=== PATIENT | female | born 1950 | race Caucasian/White ===

== ENCOUNTER 2020-01-31 13:27 | Outpatient (CLI) | payer MEDICARE, SELFPAY | END 2020-01-31 13:28 | disposition home or self-care (01) | LOC: CHSLAB 13:33 | DX: Z02.89 Encounter for other administrative examinations (principal) | CPT/HCPCS: 36415 ==

== ENCOUNTER 2020-10-13 14:16 | Outpatient (CLI) | payer OTHER, SELFPAY ==
[2020-10-13 16:06] LABS: Ferritin 8 ng/mL (8-252); Iron 15 ug/dL (50-170); Percent Iron Saturation 3 % (12-57); Vitamin B12 563 pg/mL (193-986)
== END 2020-10-13 14:17 | disposition home or self-care (01) ==
LOC: CHSLAB 14:19
PROVIDERS: PCP Family Medicine; Visit Provider Nurse Practitioner Family
DX: D64.9 Anemia, unspecified (principal)
CPT/HCPCS: 36415; 82607; 82728; 83540; 83550

== ENCOUNTER 2020-12-10 18:44 | Observation (INO) | payer MEDICARE, SELFPAY ==
[2020-12-10 19:04] VITALS: BP 144/60; PULSE 97; RESP 20; TEMP 36.7; O2SAT 97
--- NOTE | 2020-12-10 19:21 | ED.GENADULT ---
HPI - General Adult General Chief complaint: Recheck/Abnormal Lab/Rx Stated complaint: sent by doctor for low hemoglobin Source: patient Mode of arrival: ambulatory Limitations: no limitations History of Present Illness HPI narrative: Anne Marie is a 70F with a PMH of PAD, obesity, DMII, asthma, MDD, hypothyroidism, HTN, osteoporosis and anemia that presented to the ED with abnormal labs. Although she has been feeling weak she was just at a regular checkup when she had labs drawn. She had a critically low Hgb of 6.2 and was instructed to come here. She has no concerns other than her weakness. She denies N/V, diarrhea, and melena but does admit bright red blood per rectum but thinks this is from her hemorrhoids. Related Data Home Medications Medication Instructions Recorded Confirmed ezetimibe [Zetia] 10 mg PO DAILY 12/10/20 12/10/20 ferrous sulfate 325 mg PO DAILY 12/10/20 12/10/20 sertraline 100 mg PO BID 12/10/20 12/10/20 Allergies Allergy/AdvReac Type Severity Reaction Status Date / Time codeine Allergy Severe numbess in Verified 12/10/20 21:49 face , vomitting Jammopv-Uzr-Hoq Reductase Allergy Intermediate Muscle pain Verified 12/10/20 21:49 Inhibitor tetanus immune globulin Allergy Intermediate sick when Verified 12/10/20 21:49 age 4 Review of Systems Constitutional: Constitutional: Denies chills, Reports fatigue, Denies fever(s) and Reports weakness Eyes: Eyes: Reports no additional eye complaints ENT: Reports system reviewed and no additional complaints, except as documented Cardiovascular: Cardiovascular: Reports no additional cardiovascular complaints Respiratory: Respiratory: Reports no additional respiratory complaints Gastrointestinal: Gastrointestinal: Reports no additional gastrointestinal complaints Genitourinary: Genitourinary: Reports no additional female genitourinary complaints Musculoskeletal: Musculoskeletal: Reports no additional musculoskeletal complaints Integumentary/Breasts: Skin/Breast: Reports system reviewed and no additional complaints, except as docu Neurologic: Reports system reviewed and no additional complaints, except as documented Psychiatric: Psychiatric: Reports no additional psychiatric complaints Endocrine: Endocrine: Reports no additional endocrine complaints Hematologic/Lymphatic: Hematologic/Lymphatic: Reports no additional hematologic/lymphatic complaints Allergic/Immunologic: Allergic/Immunologic: Reports no additional allergic/immunologic complaints FORMERLY [facility], [facility] Past Medical History Medical History Age-related osteoporosis without current pathological fracture Essential (primary) hypertension Hyperlipidemia, unspecified Hypothyroidism, unspecified Major depressive disorder Mild persistent asthma without complication Obesity (BMI 30.0-34.9) PAD (peripheral artery disease) Type 2 diabetes mellitus without complications Surgical History Surgical History No history of previous surgery Family History Family History Sibling Family history of lung cancer, Onset Age: 73 Father Family history of heart disease in male family member before age 55 Family history of rheumatic fever Social History Social History Smoking packs per day: 0.5 Smoking cigarettes per day: 10.0 Years smoked: 12 Smoking pack-years: 6.00 Smoking status: Former smoker Tobacco type: cigarettes Smoking end date: 05/01/12 Alcohol intake: never Substance use: never Gender identity (if verbalized by the patient): Female Sexual Orientation (if Verbalized by the Patient): Straight or Heterosexual Spiritual care concerns: No Exam Const: General: no acute distress and alert Orientation/consciousness: patient oriented x3 Other: Laying on
[2020-12-10 19:29] LABS: Basophils Absolute Auto 0.02 K/mm3 (0.00-0.10); Basophils Percent Auto 0.4 % (0.0-1.0); Eosinophils Absolute Auto 0.15 K/mm3 (0.02-0.50); Eosinophils Percent Auto 2.9 % (1.0-6.0); Hematocrit 21.6 % (35.0-42.0); Immature Granulocyte Absolute 0.01 K/mm3 (0.00-0.00); Immature Granulocyte Percent A 0.2 % (0.0-0.0); Lymphocytes Absolute Auto 0.89 K/mm3 (1.10-4.50); Mean Corpuscular HGB Conc 28.2 g/dL (32.0-36.0); Mean Corpuscular Hemoglobin 21.7 pg (27.0-31.0); Mean Corpuscular Volume 76.9 fL (78.0-102.0); Mean Platelet Volume 9.1 fl (9.2-11.8); Monocytes Absolute Auto 0.43 K/mm3 (0.10-0.90); Monocytes Percent Auto 8.2 % (2.0-11.0); Neutrophils Absolute Auto 3.7 K/mm3 (1.7-7.2); Neutrophils Percent Auto 71.3 % (50.0-70.0); Platelet Count Result 186 K/mm3 (150-420); Red Blood Count 2.81 M/mm3 (4.20-5.40); Red Cell Distribution Width 17.8 % (11.6-14.4); White Blood Count 5.2 K/mm3 (4.8-10.8)
[2020-12-10 19:31] LABS: Hemoglobin 6.1 g/dL (11.7-13.8)
[2020-12-10 19:38] LABS: Alanine Aminotransferase 30 U/L (14-59); Albumin Level 3.3 g/dL (3.4-5.0); Alkaline Phosphatase 94 U/L (46-116); Anion Gap 9 mmol/L (8-16); Aspartate Amino Transferase 39 U/L (15-37); Bilirubin,Total 0.6 mg/dL (0.00-1.00); Blood Urea Nitrogen 3 mg/dL (7-18); Calcium 8.1 mg/dL (8.5-10.1); Carbon Dioxide 26 mmol/L (21-32); Chloride 97 mmol/L (98-108); Estimated CRCL calculation 52 ml/min; Estimated Glomerular Filt Rate > 60; Glucose 169 mg/dL (70-99); Osmolality Calculated 274 mOsm/kg (285-295); Potassium 3.6 mmol/L (3.5-5.1); Sodium 132 mmol/L (136-145); Total Protein 6.4 g/dL (6.4-8.2)
[2020-12-10 19:49] LABS: INR 1.1; Prothrombin Time 11.4 Seconds (9.50-12.10)
[2020-12-10] MEDS: SODIUM CHLORIDE 0.9% IV 250 ML 30 ML IV CONT (20:40)
[2020-12-10 20:46] VITALS: BP 139/74; PULSE 92; RESP 20; TEMP 37.3; O2SAT 97
[2020-12-10 21:02] VITALS: BP 144/64; PULSE 80; RESP 20; TEMP 37.3; O2SAT 97
[2020-12-10 21:47] VITALS: PULSE 91; RESP 18; O2SAT 95
[2020-12-10 22:02] VITALS: BP 130/64; PULSE 81; RESP 20; TEMP 37.3; O2SAT 96
[2020-12-10 22:35] VITALS: BP 148/68; PULSE 86; RESP 20; TEMP 37.2; O2SAT 97
[2020-12-10 22:47] LABS: Hematocrit 25.6 % (35.0-42.0); Hemoglobin 7.5 g/dL (11.7-13.8); Mean Corpuscular HGB Conc 29.3 g/dL (32.0-36.0); Mean Corpuscular Hemoglobin 22.8 pg (27.0-31.0); Mean Corpuscular Volume 77.8 fL (78.0-102.0); Mean Platelet Volume 8.9 fl (9.2-11.8); Platelet Count Result 195 K/mm3 (150-420); Red Blood Count 3.29 M/mm3 (4.20-5.40); Red Cell Distribution Width 17.3 % (11.6-14.4); White Blood Count 5.6 K/mm3 (4.8-10.8)
--- NOTE | 2020-12-10 23:37 | PC.NURSE ---
70 year old female admitted under observation for Anemia. Hgb 6.1 before 1st unit of blood. Patient brought to room in wheelchair from ER. Alert and oriented x3. Able to voice needs. Amb to/from bathroom with steady gait. States she feels stronger since receiving 1 unit of blood. HGB upon arrival to floor was 7.5 and Hct 25.6. MD notified of result. N.O. to not give 2nd unit at this time. Will repeat H and H in a.m. Patient given sandwich, oranges, and Pepsi. Patient oriented to room. Call light and belongings within reach.
[2020-12-10 23:50] VITALS: BMI 33.2
[2020-12-11] VITALS: BP 164/66; PULSE 91; RESP 18; TEMP 36; O2SAT 95
[2020-12-11 04:00] VITALS: BP 140/59; PULSE 85; RESP 18; TEMP 36.1; O2SAT 94
--- NOTE | 2020-12-11 07:10 | PC.NURSE ---
Completed bedside report. Patient resting comfortably in bed. Patient stated she was up independently to bathroom. Placed hat to keep track of I & O.
[2020-12-11 07:59] LABS: Hemoglobin 7.2 g/dL (11.7-13.8); Mean Corpuscular HGB Conc 28.8 g/dL (32.0-36.0); Mean Corpuscular Hemoglobin 22.2 pg (27.0-31.0); Mean Corpuscular Volume 77.2 fL (78.0-102.0); Mean Platelet Volume 9.2 fl (9.2-11.8); Platelet Count Result 211 K/mm3 (150-420); Red Blood Count 3.24 M/mm3 (4.20-5.40); Red Cell Distribution Width 17.3 % (11.6-14.4); White Blood Count 5.5 K/mm3 (4.8-10.8)
[2020-12-11 08:00] VITALS: BP 142/62; PULSE 80; RESP 18; TEMP 36.6; O2SAT 93
[2020-12-11 08:14] LABS: Alanine Aminotransferase 31 U/L (14-59); Albumin Level 3.2 g/dL (3.4-5.0); Alkaline Phosphatase 96 U/L (46-116); Anion Gap 10 mmol/L (8-16); Aspartate Amino Transferase 55 U/L (15-37); Bilirubin,Total 0.6 mg/dL (0.00-1.00); Blood Urea Nitrogen 4 mg/dL (7-18); Calcium 8.4 mg/dL (8.5-10.1); Carbon Dioxide 26 mmol/L (21-32); Chloride 104 mmol/L (98-108); Estimated CRCL calculation 49 ml/min; Estimated Glomerular Filt Rate > 60; Glucose 124 mg/dL (70-99); Osmolality Calculated 287 mOsm/kg (285-295); Potassium 4.3 mmol/L (3.5-5.1); Sodium 140 mmol/L (136-145); Total Protein 6.6 g/dL (6.4-8.2)
--- NOTE | 2020-12-11 08:28 | PM.SD2 ---
Same Day Admit/Disch: HPI History of Present Illness Chief complaint: sent by doctor for low hemoglobin <MACKENZIE Xiao - Last Filed: 12/11/20 08:57> Narrative: Anne Marie Salinas is a 70 year old female that presented to our emergency department after being notified by her primary care physician that she needs a blood transfusion for hemoglobin of 6. Patient has a past medical history of hyperlipidemia, hypothyroidism, major depression disorder, PAD, type 2 diabetes, osteoporosis and asthma. Patient notes that while she was at home she did feel fatigued for approximately 2 weeks she did deny any shortness of breath. This is not her first episode of anemia, she is prescribed iron pills but do not take them because they upset her stomach. Patient notes that she did have a small amount of blood in her stool but she has hemorrhoids she denies any excessive amount of blood loss with her bowel movement. She also notes that she has a future appointment with the GI doctor to be scoped to determine where her blood loss is coming from. Vital signs 140/59, 85, 18, 96.9, 94% on room air, WBCs 5.5, hemoglobin 7.2, hematocrit 25.0, platelets 211, 140, potassium 4.3, creatinine 0.85, BUN 4, glucose 124, AST 55, ALT 31. Patient being admitted for anemia she was discharged with a repeat hemoglobin hematocrit with results going to her primary care physician in 3 days <MACKENZIE Xiao - Last Filed: 12/11/20 08:57> COUNTS INCLUDE 234 BEDS AT THE [facility] Past Medical History Medical History: Medical History Age-related osteoporosis without current pathological fracture Essential (primary) hypertension Hyperlipidemia, unspecified Hypothyroidism, unspecified Major depressive disorder Mild persistent asthma without complication Obesity (BMI 30.0-34.9) PAD (peripheral artery disease) Type 2 diabetes mellitus without complications <MACKENZIE Xiao - Last Filed: 12/11/20 08:57> Surgical History Surgical History: Surgical History No history of previous surgery <MACKENZIE Xiao - Last Filed: 12/11/20 08:57> Family History Family History: Family History Sibling Family history of lung cancer, Onset Age: 73 Father Family history of heart disease in male family member before age 55 Family history of rheumatic fever <TATA Xiao-Katie - Last Filed: 12/11/20 08:57> Social History Social History: Social History Smoking packs per day: 0.5 Smoking cigarettes per day: 10.0 Years smoked: 12 Smoking pack-years: 6.00 Smoking status: Former smoker Tobacco type: cigarettes Smoking end date: 05/01/12 Alcohol intake: never Substance use: never Gender identity (if verbalized by the patient): Female Sexual Orientation (if Verbalized by the Patient): Straight or Heterosexual Spiritual care concerns: No <TATA Xiao-Katie - Last Filed: 12/11/20 08:57> Same Day Admit/Disch: Med Pre-admit Medications Home Medications: Home Medications Medication Instructions Recorded Confirmed Type clopidogrel 75 mg tablet See Rx Instructions .ROUTE 04/02/20 12/10/20 Rx .COMPLEX #90 tablet hydrochlorothiazide 12.5 mg tablet 12.5 mg PO DAILY #90 tablet 04/02/20 12/10/20 Rx alendronate 10 mg tablet 10 mg PO QAM #90 tablet 09/29/20 12/10/20 Rx losartan 100 mg tablet 100 mg PO DAILY #90 tablet 09/29/20 12/10/20 Rx metformin 1,000 mg tablet 1,000 mg PO BID #180 tablet 09/29/20 12/10/20 Rx montelukast 10 mg tablet 10 mg PO DAILY #90 tablet 09/29/20 12/10/20 Rx levothyroxine 150 mcg tablet 150 mcg PO DAILY #90 tablet 10/05/20 12/10/20 Rx sertraline 100 mg tablet 100 mg PO BID #180 tablet 10/09/20 12/10/20 Rx albuterol sulfate 90 mcg/actuation See Rx Instructions .ROUTE 11/30/20 12/10/20 Rx aerosol
[2020-12-11 12:00] VITALS: BP 140/68; PULSE 83; RESP 18; TEMP 36.8; O2SAT 93
--- NOTE | 2020-12-11 13:47 | PC.NURSE ---
Patient was discharged to home. She left by private vehicle, and was medically stable. Patient was anxious to be home, as she did not tell anyone she was in the hospital.
== END 2020-12-11 13:00 | disposition home or self-care (01) ==
LOC: CHSED 18:47 → CHS2ND 21:51
PROVIDERS: Nurse Practitioner; Admitting Provider Family Medicine; Emergency Provider Family Medicine; PCP Nurse Practitioner Family; Visit Provider Family Medicine
DX: D64.9 Anemia, unspecified (principal); E11.51 Type 2 diabetes mellitus with diabetic peripheral angiopathy without gangrene; I73.9 Peripheral vascular disease, unspecified; I10 Essential (primary) hypertension; J45.909 Unspecified asthma, uncomplicated; E03.9 Hypothyroidism, unspecified; E66.9 Obesity, unspecified; E78.5 Hyperlipidemia, unspecified; M81.0 Age-related osteoporosis without current pathological fracture; F32.9 Major depressive disorder, single episode, unspecified
CPT/HCPCS: 36415; 36430; 80053; 85025; 85027; 85610; 86850; 86900; 86901; 86920; 96360; 96361; 99285; G0378; J7050; P9016

== ENCOUNTER 2020-12-28 01:36 | Day surgery (SDC) | payer MEDICARE, SELFPAY ==
[2020-12-22 10:37] VITALS: BMI 33.1
--- NOTE | 2020-12-28 09:31 | WPDANESEPPF ---
Anes - Initial Pre Proc Eval Procedure: Operation Date: 12/28/20 13:00 Proposed Procedures p Esophagogastroduodenoscopy & Colonoscopy - Adi Echeverria MD Date/Time: 12/28/20 09:31 Surgeon: Adi Echeverria MD Pre Op Diagnosis: JOSE MARIA D50.9 Patient Data Age: 70 Gender: F Height: 1.52 m Weight: 77 kg Allergies Allergy/AdvReac Type Severity Reaction Status Date / Time codeine Allergy Severe numbess in Verified 12/28/20 12:24 face , vomitting Mnrvyrh-Gxm-Ezk Reductase Allergy Intermediate Muscle pain Verified 12/28/20 12:24 Inhibitor tetanus immune globulin Allergy Intermediate sick when Verified 12/28/20 12:24 age 4 Home Medications Medication Instructions Recorded Confirmed Type hydrochlorothiazide 12.5 mg tablet 12.5 mg PO DAILY #90 tablet 04/02/20 12/28/20 Rx alendronate 10 mg tablet 10 mg PO QAM #90 tablet 09/29/20 12/28/20 Rx losartan 100 mg tablet 100 mg PO DAILY #90 tablet 09/29/20 12/28/20 Rx metformin 1,000 mg tablet 1,000 mg PO BID #180 tablet 09/29/20 12/28/20 Rx montelukast 10 mg tablet 10 mg PO DAILY #90 tablet 09/29/20 12/28/20 Rx levothyroxine 150 mcg tablet 150 mcg PO DAILY #90 tablet 10/05/20 12/28/20 Rx ezetimibe [Zetia] 10 mg PO DAILY 12/10/20 12/28/20 History sertraline 100 mg PO BID 12/10/20 12/28/20 History clopidogrel 75 mg tablet 75 mg PO DAILY #90 tablet 12/14/20 12/28/20 Rx ferrous sulfate 325 mg (65 mg 325 mg PO DAILY #90 tablet 12/15/20 12/28/20 Rx iron) tablet albuterol sulfate 1 inh INHALATION Q4H PRN 12/22/20 12/28/20 History Patient hx anesthesia problems: none Family hx anesthesia problems: none PMFSH Past Medical History Medical History (Updated 12/28/20 @ 09:31 by Hugh Jarvis DO) Age-related osteoporosis without current pathological fracture Anxiety Asthma Essential (primary) hypertension Hyperlipidemia, unspecified Hypothyroidism, unspecified Major depressive disorder Mild persistent asthma without complication Obesity (BMI 30.0-34.9) PAD (peripheral artery disease) Type 2 diabetes mellitus without complications Surgical History Surgical History (Updated 12/28/20 @ 09:31 by Hugh Jarvis DO) History of coronary artery stent placement No history of previous surgery Family History Family History Sibling Family history of lung cancer, Onset Age: 73 Father Family history of heart disease in male family member before age 55 Family history of rheumatic fever Social History Social History Smoking packs per day: 0.5 Smoking cigarettes per day: 10.0 Years smoked: 20 Smoking pack-years: 10.00 Smoking status: Former smoker Tobacco type: cigarettes Smoking end date: 05/01/12 Alcohol intake: never Substance use: never Living arrangements: alone Gender identity (if verbalized by the patient): Female Sexual Orientation (if Verbalized by the Patient): Straight or Heterosexual Spiritual care concerns: No Anes - Eval Final PreProcedure Day of Procedure 12/28/20 09:31 Patient weight: obese Heart: regular rate and rhythm Lungs: clear to auscultation and normal air movement Airway: Mallampati scale class II Neurological: alert and oriented Last oral intake: >/= 8 hours ASA classification: III Emergent: no Anesthetic plan: proceed Anesthesia type and monitoring: general GIVS and standard monitoring Informed Consent: The patient's anesthetic plan and its attendant risks and benefits were discussed with the patient/family/POA. Questions were solicited and answers provided to the satisfaction of the patient/family/POA.
[2020-12-28 12:24] VITALS: BP 148/58; PULSE 89; RESP 22; TEMP 35.9; O2SAT 97; BMI 32.0
[2020-12-28] MEDS: LACTATED RINGERS 1,000 ML 150 ML IV CONT (12:48)
[2020-12-28 12:56] LABS: Glucose Point of Care 133 mg/dl (65-105)
--- NOTE | 2020-12-28 13:07 | PM.HPGS ---
History of Present Illness History of Present Illness Consent: Risks, benefits, and alternatives have been discussed and questions answered. Patient agrees to proceed with procedure. Chief complaint: JOSE MARIA D50.9 Narrative: Anne Marie Salinas is a 70 year old female with symptomatic JOSE MARIA that required blood transfusion, she has been taking aleve bid for several months, few times noticed dark stools. Last colonoscopy 2012. Plavix on hold for 4 days in preparation for scopes today. Review of Systems Constitutional: Constitutional: Denies headache(s) and Denies weakness Eyes: Eyes: Denies blurry vision ENT: Reports Normal hearing present, Denies headache(s) and Denies neck pain Cardiovascular: Cardiovascular: Denies chest pain and Denies dyspnea Respiratory: Respiratory: Denies dyspnea Gastrointestinal: Gastrointestinal: Reports no additional gastrointestinal complaints Genitourinary: Genitourinary: Denies dysuria Musculoskeletal: Musculoskeletal: Denies neck pain Integumentary/Breasts: Skin/Breast: Denies dry skin Neurologic: Reports Normal hearing present, Denies headache(s) and Denies weakness Psychiatric: Psychiatric: Denies anxiety Endocrine: Endocrine: Denies change in body appearance Hematologic/Lymphatic: Hematologic/Lymphatic: Denies easy bleeding Allergic/Immunologic: Allergic/Immunologic: Denies urticaria PMFSH Past Medical History Medical History (Updated 12/28/20 @ 13:08 by Adi Echeverria MD) Age-related osteoporosis without current pathological fracture Anxiety Asthma Essential (primary) hypertension Hyperlipidemia, unspecified Hypothyroidism, unspecified Iron deficiency anemia Major depressive disorder Mild persistent asthma without complication Obesity (BMI 30.0-34.9) PAD (peripheral artery disease) Type 2 diabetes mellitus without complications Surgical History Surgical History (Updated 12/28/20 @ 09:31 by Hugh Jarvis DO) History of coronary artery stent placement No history of previous surgery Family History Family History Sibling Family history of lung cancer, Onset Age: 73 Father Family history of heart disease in male family member before age 55 Family history of rheumatic fever Social History Social History Smoking packs per day: 0.5 Smoking cigarettes per day: 10.0 Years smoked: 20 Smoking pack-years: 10.00 Smoking status: Former smoker Tobacco type: cigarettes Smoking end date: 05/01/12 Alcohol intake: never Substance use: never Living arrangements: alone Gender identity (if verbalized by the patient): Female Sexual Orientation (if Verbalized by the Patient): Straight or Heterosexual Spiritual care concerns: No Meds Home Medications and Allergies Home Medications Medication Instructions Recorded Confirmed Type hydrochlorothiazide 12.5 mg tablet 12.5 mg PO DAILY #90 tablet 04/02/20 12/28/20 Rx alendronate 10 mg tablet 10 mg PO QAM #90 tablet 09/29/20 12/28/20 Rx losartan 100 mg tablet 100 mg PO DAILY #90 tablet 09/29/20 12/28/20 Rx metformin 1,000 mg tablet 1,000 mg PO BID #180 tablet 09/29/20 12/28/20 Rx montelukast 10 mg tablet 10 mg PO DAILY #90 tablet 09/29/20 12/28/20 Rx levothyroxine 150 mcg tablet 150 mcg PO DAILY #90 tablet 10/05/20 12/28/20 Rx ezetimibe [Zetia] 10 mg PO DAILY 12/10/20 12/28/20 History sertraline 100 mg PO BID 12/10/20 12/28/20 History clopidogrel 75 mg tablet 75 mg PO DAILY #90 tablet 12/14/20 12/28/20 Rx ferrous sulfate 325 mg (65 mg 325 mg PO DAILY #90 tablet 12/15/20 12/28/20 Rx iron) tablet albuterol sulfate 1 inh INHALATION Q4H PRN 12/22/20 12/28/20 History Allergies Allergy/AdvReac Type Severity Reaction Status Date / Time codeine Allergy Severe numbess in Verified 12/28/20 12:24 face , vomitting Tmhxqhy-Nni-Fbm Reductase Allergy Intermediate Muscle pain Verifi
--- NOTE | 2020-12-28 13:29 | SUR.OPER ---
EGD ENDED 1322 COLONOSCOPY STARTED 1328
[2020-12-28 13:53] VITALS: BP 125/66; PULSE 81; RESP 15; O2SAT 100
[2020-12-28 14:03] VITALS: BP 133/66; PULSE 77; RESP 18; O2SAT 97
[2020-12-28 14:13] VITALS: BP 136/52; PULSE 77; RESP 21; O2SAT 96
== END 2020-12-28 14:40 | disposition home or self-care (01) ==
PROVIDERS: PCP Nurse Practitioner Family; Visit Provider Internal Medicine Gastroenterology
PROC: 0DJ08ZZ Inspection of Upper Intestinal Tract, Via Natural or Artificial Opening Endoscopic (ICD-10-PCS; CPT 43235; principal; 2020-12-28 13:00)
DX: D50.0 Iron deficiency anemia secondary to blood loss (chronic) (principal); K57.30 Diverticulosis of large intestine without perforation or abscess without bleeding; K64.8 Other hemorrhoids; K64.4 Residual hemorrhoidal skin tags; D12.0 Benign neoplasm of cecum; D12.5 Benign neoplasm of sigmoid colon; D12.3 Benign neoplasm of transverse colon; F41.9 Anxiety disorder, unspecified; I10 Essential (primary) hypertension; E03.9 Hypothyroidism, unspecified; I73.9 Peripheral vascular disease, unspecified; E11.9 Type 2 diabetes mellitus without complications; J45.30 Mild persistent asthma, uncomplicated; M81.0 Age-related osteoporosis without current pathological fracture; Z87.891 Personal history of nicotine dependence; Z79.84 Long term (current) use of oral hypoglycemic drugs; E66.9 Obesity, unspecified; Z68.32 Body mass index [BMI] 32.0-32.9, adult; K29.70 Gastritis, unspecified, without bleeding; K29.80 Duodenitis without bleeding
CPT/HCPCS: 45385; 43239; 82948; 87081; 88305; J2704; J7120

== ENCOUNTER 2021-04-27 08:06 | Outpatient (CLI) | payer MEDICARE, SELFPAY ==
--- NOTE | ~2021-04-27 | US_ITS ---
EXAMINATION: US arterial ankle brachial ind EXAM DATE: 04/27/2021 09:11 INDICATION: I73.9 - Peripheral vascular disease, unspecified. Muscle cramping. TECHNIQUE: Segmental pressures and plethysmographic and Doppler waveforms of the brachial and lower e xtremity arteries were obtained. Comparison is made to prior examination from . FINDINGS: Right and left brachial artery pressures of 152 mm Hg and 147 mm Hg, respectively, are concordant (no rmal difference <= 30 mmHg). RIGHT LEG: The ankle-brachial index (BARRIE) is 0.46 (normal >= 0.9-1). The great toe-brachial index (TBI) is 0.30 (normal >= 0.65). The lower extremity ratios, segmental pressure gradients as follows; Dorsalis pedis: 0.46 (70 mmHg). Posterior tibial: 0.26 (39 mmHg). (Normal gradients <= 20-30 mmHg between adjacent levels on the same leg or the same levels on the two legs). Arterial waveforms are monophasic. LEFT LEG: The ankle-brachial index (BARRIE) is 0.54 (normal >= 0.9-1). The great toe-brachial index (TBI) is 0.42 (normal >= 0.65). The lower extremity ratios, segmental pressure gradients as follows; Dorsalis pedis: 0.54 (82 mmHg). Posterior tibial: Unable to hear PT for pressure (Normal gradients <= 20-30 mmHg between adjacent levels on the same leg or the same levels on the two legs). Arterial waveforms are monophasic. IMPRESSION: 1. Right ankle-brachial index 0.46, moderately decreased. 2. Left ankle-brachial index 0.54, moderately decreased. 3. Ankle-brachial indices were normal in 2013. Reviewed, dictated and finalized at location [facility]
[2021-04-27 09:29] LABS: Basophils Percent Auto 0.5 % (0.2-1.2); Eosinophils Absolute Auto 0.1 K/mm3 (0-0.3); Eosinophils Percent Auto 1.8 % (0-4.4); Hematocrit 22.1 % (37.0-47.0); Immature Granulocyte Absolute 0.02 K/mm3 (0.00-0.031); Immature Granulocyte Percent A 0.4 % (0-0.5); Lymphocytes Absolute Auto 1.23 K/mm3 (0.9-3.2); Lymphocytes Percent Auto 22.2 % (18.3-44.2); Mean Corpuscular HGB Conc 25.8 g/dl (32-36); Mean Corpuscular Hemoglobin 18.5 pg (26-34); Mean Corpuscular Volume 71.8 fl (80-100); Mean Platelet Volume 9.5 fl (7.4-10.4); Monocytes Absolute Auto 0.5 K/mm3 (0.1-0.6); Monocytes Percent Auto 8.6 % (2.6-8.5); Neutrophils Absolute Auto 3.7 K/mm3 (1.3-6.7); Neutrophils Percent Auto 66.5 % (45.5-73.1); Platelet Count Result 222 k/mm3 (150-375); Red Blood Count 3.08 M/mm3 (4.2-5.4); Red Cell Distribution Width 17.3 % (11.5-14.5); White Blood Count 5.6 K/mm3 (4.5-10.0)
[2021-04-27 09:34] LABS: Creatinine Urine 149.9 mg/dL
[2021-04-27 09:35] LABS: Hemoglobin 5.7 g/dL (12.0-15.0)
[2021-04-27 09:40] LABS: Alanine Aminotransferase 20 U/L (4-35); Albumin Level 3.7 g/dL (3.5-5.1); Alkaline Phosphatase 76 U/L (38-126); Anion Gap 11 mmol/L (8-16); Aspartate Amino Transferase 49 U/L (14-36); Bilirubin,Total 0.8 mg/dL (0.2-1.3); Blood Urea Nitrogen 4 mg/dL (7-17); Calcium 8.7 mg/dL (8.4-10.2); Carbon Dioxide 23 mmol/L (22-30); Chloride 102 mmol/L (98-107); Cholesterol 172 mg/dL (0-200); Estimated Glomerular Filt Rate > 60; Glucose 117 mg/dL (65-110); HDL Direct 37 mg/dL; Sodium 136 mmol/L (137-145); Triglycerides 112 mg/dL (<150)
[2021-04-27 09:43] LABS: Hypochromasia 2+ (NORMAL); Platelet Estimate Adequate (Adequate)
[2021-04-27 09:44] LABS: Tear Drop Cells 1+ (NORMAL)
[2021-04-27 09:51] LABS: LDL Cholesterol Direct 109 mg/dL
[2021-04-27 09:55] LABS: MALB Creatinine Ratio 349.2 mg/g (0-30); Microalbumin Urine Random 523.5 mg/L (0-16.7)
== END 2021-04-27 08:07 | disposition home or self-care (01) ==
PROVIDERS: PCP Nurse Practitioner Family; Visit Provider Nurse Practitioner Family
DX: E78.5 Hyperlipidemia, unspecified (principal); E11.9 Type 2 diabetes mellitus without complications; E03.9 Hypothyroidism, unspecified; I73.9 Peripheral vascular disease, unspecified; I10 Essential (primary) hypertension
CPT/HCPCS: 36415; 80053; 80061; 82043; 83036; 84443; 85025; 93922

== ENCOUNTER 2021-04-27 11:40 | Observation (INO) | payer MEDICARE, SELFPAY ==
[2021-04-27] VITALS (48 sets, daily range): BP systolic 132–164; BP diastolic 41–67; PULSE 73–98; RESP 15–37; TEMP 35.8–37; O2SAT 93–100; BMI 28.6
[2021-04-27 15:46] LABS: Hematocrit 21.2 % (37.0-47.0)
[2021-04-27 16:00] LABS: Hemoglobin 5.3 g/dL (12.0-15.0)
--- NOTE | 2021-04-27 17:05 | ED.GENADULT ---
HPI - General Adult General Chief complaint: Recheck/Abnormal Lab/Rx Stated complaint: hemoglobin 5.9 Time Seen by Provider: 04/27/21 16:25 Source: patient Mode of arrival: ambulatory Limitations: no limitations History of Present Illness HPI narrative: Patient presents for evaluation of anemia. She saw her primary care provider on 04/15/2021. At that time she had mentioned that she had stopped taking iron replacement due to constipation. She has a history of anemia and had a colonoscopy completed in November of this year. Polyps were removed. At her PCP office visit on 04/15/2021 she had noted she was feeling tired. She had routine lab work performed today and her HgB was 5.7. She states her PCP called EMS because they were concerned that she may have a syncopal episode with her blood count that low. EMS brought her in for further evaluation. During my initial assessment, she denies fatigue, dizziness, lightheadedness, nausea, vomiting, abdominal pain, blood in stool, black colored stool, hematuria, chest pain and shortness of breath. She is on daily plavix. She states she no longer uses aspirin. She does not use NSAIDs. She is not anticoagulated. Upon arriving here today she had her blood work repeated and HgB was 5.3. Related Data Home Medications Medication Instructions Recorded Confirmed albuterol sulfate 1 inh INHALATION Q4H PRN 12/22/20 04/15/21 Allergies Allergy/AdvReac Type Severity Reaction Status Date / Time codeine Allergy Severe numbess in Verified 04/15/21 13:58 face , vomitting Flqbamd-WSL-BdN Reductase Allergy Intermediate Muscle pain Verified 04/15/21 13:58 Inhibitor [Xclyqmf-Vvp-Kmo Reductase Inhibitor] tetanus immune globulin Allergy Intermediate sick when Verified 04/15/21 13:58 age 4 Review of Systems Review of Systems: CONSTITUTIONAL: Denies fever, chills, or sweats. EYES: Denies visual changes, redness, or discharge. ENT: Denies rhinorrhea, congestion, sore throat, or otalgia. CARDIOVASCULAR: Denies chest pain, palpitations, or edema. RESPIRATORY: Denies cough or dyspnea. GASTROINTESTINAL: Denies abdominal pain, nausea, vomiting, or diarrhea. GENITOURINARY: Denies dysuria or hematuria. SKIN: Denies rash or itching. MUSCULOSKELETAL: Denies back pain, joint pain, or myalgia. NEUROLOGIC: Denies headache, numbness, dizziness, or weakness. PSYCHIATRIC: Denies anxiety or depression. FORMERLY [facility] Past Medical History Medical History Age-related osteoporosis without current pathological fracture Anxiety Asthma Essential (primary) hypertension Heart murmur Hyperlipidemia, unspecified Hypothyroidism, unspecified Iron deficiency anemia Major depressive disorder Mild persistent asthma without complication Obesity (BMI 30.0-34.9) PAD (peripheral artery disease) Type 2 diabetes mellitus without complications Surgical History Surgical History History of coronary artery stent placement No history of previous surgery Family History Family History Sibling Family history of lung cancer, Onset Age: 73 Father Family history of heart disease in male family member before age 55 Family history of rheumatic fever Social History Social History Smoking packs per day: 0.5 Smoking cigarettes per day: 10.0 Years smoked: 20 Smoking pack-years: 10.00 Smoking status: Former smoker Tobacco type: cigarettes Smoking end date: 05/01/12 Alcohol intake: never Substance use: never Gender identity (if verbalized by the patient): Female Sexual Orientation (if Verbalized by the Patient): Straight or Heterosexual Spiritual care concerns: No Exam Narrative: GENERAL: Well-appearing, well-nourished, and in no acute distress. AJ
[2021-04-27 17:38] LABS: INR 1.1; Prothrombin Time 14.4 Seconds (11.1-14.7)
[2021-04-27 17:39] LABS: Partial Thromboplastin Time 25.5 SECONDS (22.3-36.8)
[2021-04-27 17:40] LABS: Alanine Aminotransferase 19 U/L (4-35); Albumin Level 3.5 g/dL (3.5-5.1); Alkaline Phosphatase 92 U/L (38-126); Anion Gap 9 mmol/L (8-16); Aspartate Amino Transferase 50 U/L (14-36); Bilirubin,Total 0.6 mg/dL (0.2-1.3); Blood Urea Nitrogen 8 mg/dL (7-17); Calcium 8.8 mg/dL (8.4-10.2); Carbon Dioxide 24 mmol/L (22-30); Chloride 103 mmol/L (98-107); Estimated Glomerular Filt Rate > 60; Glucose 119 mg/dL (65-110); Lipase 179 U/L (23-300); Potassium 3.6 mmol/L (3.4-5.0); Sodium 136 mmol/L (137-145)
--- NOTE | 2021-04-27 18:59 | PM.IMHP ---
H&P: HPI History of Present Illness Date/Time: 04/27/21 18:59 Chief Complaint: Anemia on outpatient labs Narrative: 71-year-old female with past medical history of iron deficiency anemia, gastritis, duodenitis, colonoscopy with polypectomy who presented to the ER due to anemia on outpatient labs. The patient has a had iron deficiency anemia that has been known since at least September of 2020. At the time she was placed on oral iron supplementation which she stopped soon after due to constipation. She did not discuss this with her primary care provider. In November she had an EGD which demonstrated duodenitis and gastritis. At that time she had been taking Aleve twice daily for arthritis pain. She stops taking the Aleve and switch to Tylenol at that time. She also had a colonoscopy at that time which she reports demonstrated some evidence of bleeding from a colon polyp. However this is not mentioned in her colonoscopy report. She has not had any recent blood transfusions. She has never had an iron infusion. She denies having any recent bloody stools or black stools. Her Hemoccult stool from rectal exam in the ER was negative. She denies any palpitations, shortness of breath, increased pallor, hematuria, petechiae or bruising. He denies any lightheadedness or changes in her baseline health. She denies taking blood thinners but does have Plavix listed on her home med list. She states that she thinks she eats enough dietary iron. Review of Systems Review of Systems: 12 systems were reviewed with pertinent positives and negatives per HPI. Except as documented in the HPI, all other systems were reviewed and are negative. [facility] Past Medical History Medical History (Updated 04/27/21 @ 20:51 by Anni Muir DO) Age-related osteoporosis without current pathological fracture Anxiety Essential (primary) hypertension Heart murmur Hyperlipidemia, unspecified Hypothyroidism, unspecified Iron deficiency anemia Major depressive disorder Mild persistent asthma without complication Obesity (BMI 30.0-34.9) PAD (peripheral artery disease) Left femoral stent Type 2 diabetes mellitus without complications Surgical History Surgical History (Updated 04/27/21 @ 20:40 by Anni Muir DO) History of colonoscopy with polypectomy (~11/2020) Status post peripheral artery angioplasty with insertion of stent Left femoral Family History Family History (Updated 04/27/21 @ 20:43 by Anni Muir DO) Sibling Family history of lung cancer, Onset Age: 73 Sisters still living Father , Age 46 Rheumatic heart disease Sibling , Age 46 Heart disease Mother , Age 76 Emphysema lung Son Calciphylaxis cutis Social History Social History (Updated 04/27/21 @ 20:45 by Anni Muir DO) Social History: She is and lives alone. She has 2 adult sons. 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 Primary care physician: Dr. Miranda Morfin Code status: Full code Smoking packs per day: 1 Smoking cigarettes per day: 20.0 Years smoked: 45 Smoking pack-years: 45.00 Smoking status: Former smoker Tobacco type: cigarettes Smoking end date: 05/01/12 Alcohol intake: never Substance use: never Gender identity (if verbalized by the patient): Female Sexual Orientation (if Verbalized by the Patient): Straight or Heterosexual Spiritual care concerns: No Meds Home Medications and Allergies Home Medications Medication Instructions Recorded Confirmed Type hydrochlorothiazide 12.5 mg tablet 12.5 mg PO DAILY #90 tablet 04/02/20 04/15/21 Rx alendronate 10 mg tablet 10 mg PO QAM #90 tablet 09/29/20 04/15/21 Rx losartan 100 mg tablet 100 mg PO DAILY #90 tablet 09/29/20 04/15/21 Rx metformin 1,000 mg tablet 1,000 mg PO BID #180 tablet 09/29/20 04/15/21 Rx clopidogrel 75 mg tablet 75 mg PO DAILY #90 tablet 12/14/20 04/15/21 Rx albuterol sulfate 1 inh INHALATION Q4H PRN
[2021-04-27] MEDS: SODIUM CHLORIDE 0.9% IV 250 ML 30 ML IV CONT (19:13)
[2021-04-27] MEDS: TUBING, BLOOD SET 1 EACH XX (19:17)
[2021-04-27] MEDS: IRON SUCROSE COMPLEX 500 MG in SODIUM CHLORIDE 0.9% IV 250 ML 78.57 MG IVPB (21:45)
[2021-04-27 22:04] LABS: Add Urine Microscopic? YES; Appearance Urine Clear (Clear); Bilirubin Urine Negative (Negative); Blood Urine Negative (Negative); Color Urine Yellow (Yellow); Glucose Urine UA Negative (Negative); Ketones Urine Negative (Negative); Leukocyte Esterase Ur Negative LEU/UL (Negative); Nitrate Urine Negative (Negative); Protein Urine 2+ mg/dL (Negative); RBC Urine 0-2 /hpf (0-2); Specific Grav Ur 1.012 (1.001-1.035); Squamous Epithelial Cell Urine Few /hpf (Few); WBC Urine 0-3 /hpf
--- NOTE | 2021-04-27 22:50 | ADMGEN ---
This patient, Anne Marie Salinas, was admitted to Medical Room 345-01. Patient/family oriented to hospital policies and general routines including ID bracelet, bed and alarms, visiting hours, pain management, procedures, bathroom and other care routines, personal items, smoking policy, room service/diet, and visiting hours. Information on how to activate the Rapid Response Team has been discussed. Patient/Family are encouraged to report perceived risks to care and to ask questions if they do not understand what they are told or what they should do.
[2021-04-27 23:12] LABS: Glucose Point of Care 109 mg/dl (65-105)
[2021-04-28] VITALS (14 sets, daily range): BP systolic 119–178; BP diastolic 43–109; PULSE 71–93; RESP 18–22; TEMP 35.9–36.9; O2SAT 94–99
[2021-04-28] MEDS: SODIUM CHLORIDE 0.9% IV 250 ML 30 ML (01:28)
[2021-04-28 06:31] LABS: Basophils Percent Auto 0.9 % (0.2-1.2); Eosinophils Absolute Auto 0.1 K/mm3 (0-0.3); Hematocrit 26.7 % (37.0-47.0); Hemoglobin 7.6 g/dL (12.0-15.0); Immature Granulocyte Absolute 0.01 K/mm3 (0.00-0.031); Immature Granulocyte Percent A 0.3 % (0-0.5); Lymphocytes Absolute Auto 0.91 K/mm3 (0.9-3.2); Lymphocytes Percent Auto 26.5 % (18.3-44.2); Mean Corpuscular HGB Conc 28.5 g/dl (32-36); Mean Corpuscular Hemoglobin 21.4 pg (26-34); Mean Corpuscular Volume 75.2 fl (80-100); Mean Platelet Volume 10.1 fl (7.4-10.4); Monocytes Absolute Auto 0.4 K/mm3 (0.1-0.6); Monocytes Percent Auto 10.5 % (2.6-8.5); Neutrophils Absolute Auto 2.1 K/mm3 (1.3-6.7); Neutrophils Percent Auto 59.8 % (45.5-73.1); Platelet Count Result 149 k/mm3 (150-375); Red Blood Count 3.55 M/mm3 (4.2-5.4); Red Cell Distribution Width 18.9 % (11.5-14.5); White Blood Count 3.4 K/mm3 (4.5-10.0)
[2021-04-28 06:44] LABS: Alanine Aminotransferase 17 U/L (4-35); Albumin Level 3.2 g/dL (3.5-5.1); Alkaline Phosphatase 80 U/L (38-126); Anion Gap 7 mmol/L (8-16); Aspartate Amino Transferase 39 U/L (14-36); Blood Urea Nitrogen 6 mg/dL (7-17); Calcium 8.4 mg/dL (8.4-10.2); Carbon Dioxide 26 mmol/L (22-30); Chloride 105 mmol/L (98-107); Estimated CRCL calculation 56 ml/min; Estimated Glomerular Filt Rate > 60; Glucose 97 mg/dL (65-110); Potassium 3.4 mmol/L (3.4-5.0); Sodium 138 mmol/L (137-145)
[2021-04-28 07:15] LABS: Hypochromasia 1+ (NORMAL); Platelet Estimate Adequate (Adequate); Poikilocytosis 1+ (NORMAL)
[2021-04-28 07:48] LABS: Glucose Point of Care 95 mg/dl (65-105)
[2021-04-28] MEDS: hydroCHLOROthiazide 12.5 MG CAPSULE PO (10:19)
[2021-04-28] MEDS: EZETIMIBE 10 MG TABLET PO (10:19)
[2021-04-28] MEDS: SERTRALINE HCL 50 MG TABLET 100 MG PO ×2 (10:19→20:52)
[2021-04-28] MEDS: LOSARTAN POTASSIUM 100 MG TABLET PO (10:19)
[2021-04-28] MEDS: PANTOPRAZOLE SODIUM IV 40 MG VIAL IV PUSH ×2 (10:20→20:52)
[2021-04-28 12:00] LABS: Glucose Point of Care 97 mg/dl (65-105)
--- NOTE | 2021-04-28 13:12 | PM.IMPN ---
Progress Note: A&P Assessment and Plan (1) Iron deficiency anemia: Qualifiers: Iron deficiency anemia type: unspecified iron deficiency Qualified Code(s): D50.9 - Iron deficiency anemia, unspecified Code(s): D50.9 - Iron deficiency anemia, unspecified Status: Acute (2) Heart murmur: Code(s): R01.1 - Cardiac murmur, unspecified Status: Acute (3) Type 2 diabetes mellitus without complications: Qualifiers: Diabetes mellitus custodial insulin use: without custodial use Qualified Code(s): E11.9 - Type 2 diabetes mellitus without complications Code(s): E11.9 - Type 2 diabetes mellitus without complications Status: Chronic Additional Plan Severe anemia History of chronic blood loss Gastritis/duodenitis in the past Colon polyps Diverticulosis FOBT negative this admission Iron deficiency anemia Intolerant to oral iron Transfuse 2 unit of PRBC last night with improvement in her hemoglobin. With severity of anemia I suggest further evaluation for any GI bleed. History of gastritis/duodenitis and diverticulosis. Status post EGD and colonoscopy in November 2020 with the findings noted above Considered to be related to NSAIDs use. She is on Plavix currently for her lower extremity peripheral vascular disease needing left femoral stent She received Venofer infusion here Plavix currently on hold GI consulted for further direction further evaluation for source of bleeding lytes not entirely clear if she has bleeding Is it safe to continue on Plavix at discharge? Will we be able to say this without evaluating for ongoing bleed due to severity of anemia that she presented with though asymptomatic. Though she is adamant at going home, she is convinced to stay to speak with GI specialist. Subjective Date/time seen: 04/28/21 13:12 Interval history: HPI:71-year-old female with past medical history of iron deficiency anemia, gastritis, duodenitis, colonoscopy with polypectomy who presented to the ER due to anemia on outpatient labs. The patient has a had iron deficiency anemia that has been known since at least September of 2020. At the time she was placed on oral iron supplementation which she stopped soon after due to constipation. She did not discuss this with her primary care provider. In November she had an EGD which demonstrated duodenitis and gastritis. At that time she had been taking Aleve twice daily for arthritis pain. She stops taking the Aleve and switch to Tylenol at that time. She also had a colonoscopy at that time which she reports demonstrated some evidence of bleeding from a colon polyp. However this is not mentioned in her colonoscopy report. She has not had any recent blood transfusions. She has never had an iron infusion. She denies having any recent bloody stools or black stools. Her Hemoccult stool from rectal exam in the ER was negative. She denies any palpitations, shortness of breath, increased pallor, hematuria, petechiae or bruising. He denies any lightheadedness or changes in her baseline health. She denies taking blood thinners but does have Plavix listed on her home med list. She states that she thinks she eats enough dietary iron. 04/28/2021 she received 1 unit of blood transfusion and hemoglobin up to 7.6. She feels fine and wants to go home. Review of Systems Review of Systems: All systems reviewed & are unremarkable except as noted in HPI and below (HPI) Exam Narrative: General: No acute distress, obese HEENT: Marked conjunctival pallor, no scleral icterus, pupils are equal and reactive with evidence of prior cataract extraction, head is normocephalic atraumatic Respiratory: Clear to auscultation bilaterally, no increased work of breathing Cardiovascular: 2/6 systolic murmur, regular rate, regular rhythm, 2+ bilateral radial pedal pulses Gastrointestinal: Soft, nontender, nondistended, positive bowel sounds Skin: Generalized pallor, non jaundi
[2021-04-28 14:56] LABS: Iron 536 ug/dL (37-170)
[2021-04-28 15:06] LABS: Percent Iron Saturation 111 % (20-50)
--- NOTE | 2021-04-28 15:19 | WPDGICN ---
Assessment and Plan Assessment and plan (1) Iron deficiency anemia: Qualifiers: Iron deficiency anemia type: unspecified iron deficiency Qualified Code(s): D50.9 - Iron deficiency anemia, unspecified Code(s): D50.9 - Iron deficiency anemia, unspecified Status: Acute Assessment and Plan: Patient with iron deficiency anemia this is recently been evaluated with finding a colon polyp as well as duodenitis and gastritis. At the present time there is no need to repeat investigation. Patient should be given iron either orally or intravenously. And close follow-up as she may need additional iron until this resolves. Unless she has additional active bleeding endoscopy is unlikely to change her diagnosis. Would recommend documenting stable hemoglobin after transfusion implementing a plan for iron replacement either intravenously or orally if she can be assured of being compliant with medication approach. NSAIDs should be avoided as this may contribute to her gastritis and duodenitis. She may benefit from PPI therapy. Follow-up colonoscopy suggested in 5 years given the finding of colon polyp several months ago. Should any questions remain she can follow up with Dr. Miranda in the GI office electively. (2) PAD (peripheral artery disease): Code(s): I73.9 - Peripheral vascular disease, unspecified Status: Acute (3) Type 2 diabetes mellitus without complications: Qualifiers: Diabetes mellitus mcfp insulin use: without mcfp use Qualified Code(s): E11.9 - Type 2 diabetes mellitus without complications Code(s): E11.9 - Type 2 diabetes mellitus without complications Status: Chronic GI Consult Note Consult date/time: 04/28/21 15:19 HPI: Anne Marie Salinas is a 71 year old female I am asked to see for iron deficiency anemia. Patient reports initially found to have anemia on routine testing in November of this year underwent extensive GI evaluation by Dr. Miranda that included a colonoscopy finding a polyp. An EGD that showed gastritis and duodenitis. Patient was initially placed on iron but stopped this after less than a month because of complaints of constipation. Patient currently takes Plavix because of peripheral vascular disease. Patient denies abdominal pain. She states bowel habits are normal. She denies any obvious bleeding. She has had no menstrual cycles. She denies nose bleeds or bruises. Review of Systems Review of Systems: All systems reviewed & are unremarkable except as noted in HPI and below PMFSH Past Medical History Medical History (Updated 04/27/21 @ 20:51 by Anni Muir DO) Age-related osteoporosis without current pathological fracture Anxiety Essential (primary) hypertension Heart murmur Hyperlipidemia, unspecified Hypothyroidism, unspecified Iron deficiency anemia Major depressive disorder Mild persistent asthma without complication Obesity (BMI 30.0-34.9) PAD (peripheral artery disease) Left femoral stent Type 2 diabetes mellitus without complications Surgical History Surgical History (Updated 04/27/21 @ 20:40 by Anni Muir DO) History of colonoscopy with polypectomy (~11/2020) Status post peripheral artery angioplasty with insertion of stent Left femoral Family History Family History Sibling Family history of lung cancer, Onset Age: 73 Sisters still living Father , Age 46 Rheumatic heart disease Sibling , Age 46 Heart disease Mother , Age 76 Emphysema lung Son Calciphylaxis cutis Social History Social History (Updated 04/27/21 @ 20:45 by Anni Muir DO) Social History: She is and lives alone. She has 2 adult sons. 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 Primary care physician: Dr. Miranda Morfin Code status: Full code Smoking packs per day: 1 Smoking cigarettes per day: 20.0
[2021-04-28 15:55] LABS: Folic Acid > 20.0 ng/mL (2.76->20)
[2021-04-28 17:01] LABS: Glucose Point of Care 104 mg/dl (65-105)
[2021-04-28 20:08] LABS: Glucose Point of Care 120 mg/dl (65-105)
[2021-04-29] VITALS: PULSE 70
[2021-04-29 04:00] VITALS: PULSE 61; PULSE 66; RESP 20; TEMP 36.1; O2SAT 94
[2021-04-29] MEDS: LEVOTHYROXINE SODIUM 150 MCG TABLET PO (05:41)
[2021-04-29 06:59] LABS: Basophils Percent Auto 0.6 % (0.2-1.2); Eosinophils Absolute Auto 0.1 K/mm3 (0-0.3); Eosinophils Percent Auto 2.5 % (0-4.4); Hematocrit 26.8 % (37.0-47.0); Hemoglobin 7.6 g/dL (12.0-15.0); Immature Granulocyte Absolute 0.02 K/mm3 (0.00-0.031); Immature Granulocyte Percent A 0.6 % (0-0.5); Immature Platelet Fraction Pct 2.9 % (0.9-11.2); Lymphocytes Absolute Auto 0.82 K/mm3 (0.9-3.2); Mean Corpuscular HGB Conc 28.4 g/dl (32-36); Mean Corpuscular Hemoglobin 21.3 pg (26-34); Mean Corpuscular Volume 75.3 fl (80-100); Mean Platelet Volume 9.7 fl (7.4-10.4); Monocytes Absolute Auto 0.3 K/mm3 (0.1-0.6); Monocytes Percent Auto 9.3 % (2.6-8.5); Neutrophils Absolute Auto 2.3 K/mm3 (1.3-6.7); Platelet Count Result 128 k/mm3 (150-375); Red Blood Count 3.56 M/mm3 (4.2-5.4); Red Cell Distribution Width 19.1 % (11.5-14.5); White Blood Count 3.6 K/mm3 (4.5-10.0)
[2021-04-29 07:13] LABS: Anion Gap 7 mmol/L (8-16); Blood Urea Nitrogen 4 mg/dL (7-17); Calcium 8.9 mg/dL (8.4-10.2); Carbon Dioxide 25 mmol/L (22-30); Chloride 104 mmol/L (98-107); Estimated CRCL calculation 56 ml/min; Estimated Glomerular Filt Rate > 60; Glucose 94 mg/dL (65-110); Potassium 3.3 mmol/L (3.4-5.0); Sodium 136 mmol/L (137-145)
[2021-04-29 07:50] LABS: Glucose Point of Care 90 mg/dl (65-105)
[2021-04-29 07:53] LABS: Hypochromasia 2+ (NORMAL)
[2021-04-29 07:54] LABS: Poikilocytosis 1+ (NORMAL)
[2021-04-29 08:00] VITALS: PULSE 78
[2021-04-29] MEDS: MONTELUKAST SODIUM 10 MG TABLET PO (08:05)
[2021-04-29] MEDS: LOSARTAN POTASSIUM 100 MG TABLET PO (08:06)
[2021-04-29] MEDS: EZETIMIBE 10 MG TABLET PO (08:06)
[2021-04-29] MEDS: hydroCHLOROthiazide 12.5 MG CAPSULE PO (08:06)
[2021-04-29] MEDS: SERTRALINE HCL 50 MG TABLET 100 MG PO (08:06)
[2021-04-29 08:16] VITALS: O2SAT 95
[2021-04-29 08:55] VITALS: BP 108/76; PULSE 78; RESP 18; TEMP 36.1; O2SAT 96
--- NOTE | 2021-04-29 10:39 | PM.DS ---
DS: Admitting Diagnosis Discharge Date 04/29/2021 Admitting Diagnosis Anemia DS: Discharge Diagnosis Discharge Diagnosis (1) Iron deficiency anemia: Qualifiers: Iron deficiency anemia type: unspecified iron deficiency Qualified Code(s): D50.9 - Iron deficiency anemia, unspecified Code(s): D50.9 - Iron deficiency anemia, unspecified Status: Acute (2) Heart murmur: Code(s): R01.1 - Cardiac murmur, unspecified Status: Acute (3) Type 2 diabetes mellitus without complications: Qualifiers: Diabetes mellitus intermission coordinator insulin use: without intermission coordinator use Qualified Code(s): E11.9 - Type 2 diabetes mellitus without complications Code(s): E11.9 - Type 2 diabetes mellitus without complications Status: Chronic (4) Anemia: Qualifiers: Anemia type: iron deficiency Iron deficiency anemia type: unspecified iron deficiency Qualified Code(s): D50.9 - Iron deficiency anemia, unspecified Code(s): D64.9 - Anemia, unspecified Status: Acute DS: Summary Hospital Course Hospital Course: 71-year-old female with past medical history of iron deficiency anemia, gastritis, duodenitis, colonoscopy with polypectomy who presented to the ER due to anemia on outpatient labs. The patient has a had iron deficiency anemia that has been known since at least September of 2020. At the time she was placed on oral iron supplementation which she stopped soon after due to constipation. She did not discuss this with her primary care provider. In November she had an EGD which demonstrated duodenitis and gastritis. At that time she had been taking Aleve twice daily for arthritis pain. She stops taking the Aleve and switch to Tylenol at that time. She also had a colonoscopy at that time which she reports demonstrated some evidence of bleeding from a colon polyp. However this is not mentioned in her colonoscopy report. She has not had any recent blood transfusions. She has never had an iron infusion. She denies having any recent bloody stools or black stools. Her Hemoccult stool from rectal exam in the ER was negative. She denies any palpitations, shortness of breath, increased pallor, hematuria, petechiae or bruising. He denies any lightheadedness or changes in her baseline health. She denies taking blood thinners but does have Plavix listed on her home med list. She states that she thinks she eats enough dietary iron. # Severe anemia transfused 2 units of PRBC with improvement in H&H and remained stable. No signs of GI bleed FOBT came back negative. She does have history of gastritis/duodenitis and diverticulosis. Status post EGD and colonoscopy in November 2020 with findings noted above. He was considered to be related to NSAIDs use. She has not use NSAIDs since then. This was conformed with careful scrutiny of her home medication list. GI was consulted during the visit and no intervention suggested at this time and to follow up with Dr. Miranda on an outpatient basis. She is also deficient on iron and IV Venofer was given during the hospital stay. She was on iron orally but due to intolerance due to constipation she stopped them after a month since November. Have suggested we can switch to of ferrous gluconate which is more tolerant then ferrous sulfate for iron deficiency. I will also suggested she see a promos executive producer for her ongoing iron-deficiency anemia if further workup is needed. Will order CBC check in 1-2 weeks of primary care to follow up on the report. # Gastritis/duodenitis in the past # Colon polyps status post polypectomy # Diverticulosis # FOBT negative this admission # Iron deficiency anemia # Intolerant to oral iron Time Spent with Patient Time attestation: Total time spent providing and/or coordinating discharge services:40 minutes Exam Narrative: General: No acute distress, obese HEENT: Marked conjunctival pallor, no scleral icterus, pupils are equal and react
[2021-05-03 10:37] LABS: Reference Lab Test Name HGB A1C; Reference Lab Test Result 5.1
== END 2021-04-29 11:56 | disposition home or self-care (01) ==
LOC: ANHED 17:56 → ANH3MED 23:53 → ANH3MEDSUR 05-03 12:25
PROVIDERS: Emergency Medicine; Admitting Provider Internal Medicine; Emergency Provider Nurse Practitioner; PCP Family Medicine; Visit Provider Internal Medicine
DX: D50.9 Iron deficiency anemia, unspecified (principal); R01.1 Cardiac murmur, unspecified; I10 Essential (primary) hypertension; E78.5 Hyperlipidemia, unspecified; E03.9 Hypothyroidism, unspecified; K64.4 Residual hemorrhoidal skin tags; E11.51 Type 2 diabetes mellitus with diabetic peripheral angiopathy without gangrene; J45.30 Mild persistent asthma, uncomplicated; M81.0 Age-related osteoporosis without current pathological fracture; F41.8 Other specified anxiety disorders; Z87.891 Personal history of nicotine dependence; Z79.84 Long term (current) use of oral hypoglycemic drugs; Z79.02 Long term (current) use of antithrombotics/antiplatelets; Z79.51 Long term (current) use of inhaled steroids; Z95.5 Presence of coronary angioplasty implant and graft
CPT/HCPCS: 36415; 36430; 80048; 80053; 80061; 81001; 82043; 82607; 82728; 82746; 82948; 83036; 83540; 83550; 83690; 84443; 85014; 85018; 85025; 85055; 85610; 85730; 86850; 86900; 86901; 86920; 93922; 96361; 96365; 96366; 96375; 96376; 99285; A9270; C9113; G0378; J1756; J7050; P9016

== ENCOUNTER 2021-05-06 11:36 | Outpatient (CLI) | payer MEDICARE, SELFPAY ==
[2021-05-06 12:15] LABS: Hemoglobin A1C 5.4 % (<5.7)
== END 2021-05-06 11:37 | disposition home or self-care (01) ==
LOC: ANHLAB 11:39
PROVIDERS: PCP Family Medicine; Visit Provider Nurse Practitioner Family
DX: E11.9 Type 2 diabetes mellitus without complications (principal)
CPT/HCPCS: 36415; 83036

== ENCOUNTER 2021-08-20 09:13 | Outpatient (CLI) | payer MEDICARE, SELFPAY ==
[2021-08-20 09:28] LABS: Hematocrit 35.5 % (35.0-42.0); Hemoglobin 11.2 g/dL (11.7-13.8); Mean Corpuscular HGB Conc 31.5 g/dL (32.0-36.0); Mean Corpuscular Hemoglobin 29.1 pg (27.0-31.0); Mean Corpuscular Volume 92.2 fL (78.0-102.0); Mean Platelet Volume 9.4 fl (9.2-11.8); Platelet Count Result 182 K/mm3 (150-420); Red Blood Count 3.85 M/mm3 (4.20-5.40); Red Cell Distribution Width 14.6 % (11.6-14.4); White Blood Count 5.5 K/mm3 (4.8-10.8)
[2021-08-20 09:47] LABS: Hemoglobin A1C 5.5 % (<5.7)
[2021-08-20 10:07] LABS: Alanine Aminotransferase 28 U/L (14-59); Albumin Level 3.6 g/dL (3.4-5.0); Alkaline Phosphatase 129 U/L (46-116); Anion Gap 5 mmol/L (8-16); Aspartate Amino Transferase 42 U/L (15-37); Bilirubin,Total 0.5 mg/dL (0.00-1.00); Blood Urea Nitrogen 9 mg/dL (7-18); Calcium 9.4 mg/dL (8.5-10.1); Carbon Dioxide 32 mmol/L (21-32); Chloride 100 mmol/L (98-108); Cholesterol 214 mg/dL (0-200); Estimated Glomerular Filt Rate 60; Ferritin 24 ng/mL (8-252); Glucose 115 mg/dL (70-99); HDL Direct 47 mg/dL (40-60); LDL Cholesterol Calculated 147 mg/dL (<130); Osmolality Calculated 283 mOsm/kg (285-295); Potassium 4.1 mmol/L (3.5-5.1); Sodium 137 mmol/L (136-145); Total Protein 6.7 g/dL (6.4-8.2); Triglycerides 102 mg/dL (0-150)
== END 2021-08-20 09:14 | disposition home or self-care (01) ==
PROVIDERS: PCP Nurse Practitioner Family; Visit Provider Nurse Practitioner Family
DX: E03.9 Hypothyroidism, unspecified (principal); E11.9 Type 2 diabetes mellitus without complications; I10 Essential (primary) hypertension; E78.5 Hyperlipidemia, unspecified; D50.9 Iron deficiency anemia, unspecified
CPT/HCPCS: 36415; 80053; 80061; 82728; 83036; 84443; 85027

== ENCOUNTER 2021-09-11 10:20 | Outpatient (CLI) | payer MEDICARE, SELFPAY ==
[2021-09-11 11:05] LABS: Hemoglobin A1C 6.1 % (<5.7)
[2021-09-11 11:12] LABS: Alanine Aminotransferase 19 U/L (14-59); Albumin Level 3.2 g/dL (3.4-5.0); Alkaline Phosphatase 102 U/L (46-116); Anion Gap 8 mmol/L (8-16); Aspartate Amino Transferase 40 U/L (15-37); Bilirubin,Total 0.4 mg/dL (0.00-1.00); Blood Urea Nitrogen 6 mg/dL (7-18); Carbon Dioxide 31 mmol/L (21-32); Chloride 102 mmol/L (98-108); Estimated Glomerular Filt Rate > 60; Glucose 101 mg/dL (70-99); Osmolality Calculated 289 mOsm/kg (285-295); Potassium 3.3 mmol/L (3.5-5.1); Sodium 141 mmol/L (136-145); Thyroid Stimulating Hormone 0.41 uIU/mL (0.36-3.74); Total Protein 6.5 g/dL (6.4-8.2)
== END 2021-09-11 10:21 | disposition home or self-care (01) ==
LOC: CHSLAB 10:24
PROVIDERS: PCP Nurse Practitioner Family; Visit Provider Nurse Practitioner Family
DX: E03.9 Hypothyroidism, unspecified (principal); R74.8 Abnormal levels of other serum enzymes; E11.9 Type 2 diabetes mellitus without complications
CPT/HCPCS: 36415; 80053; 83036; 84443

== ENCOUNTER 2021-09-22 13:39 | Outpatient (CLI) | payer MEDICARE, SELFPAY ==
--- NOTE | 2021-09-22 14:05 | ECHO_ITS ---
Patient Info Name: Anne Marie Salinas Age: 71 years : 1950 Gender: Female Ht: 61 in Wt: 140 lbs BSA: 1.67 m2 HR: 78 bpm BP: 155 / 72 mmHg Heart Rhythm: Sinus Rhythm Technical Quality: Good Exam Date: 09/22/2021 2:23 PM Exam Location: [facility] Patient Status: Outpatient Admit Date: 09/22/2021 Staff Ordering Physician: Monika Womack NP Machine Bender: Catherine Lemons RDCS Attending Provider: Monika Womack NP Referring Physician: Vu MCCARTHY; Exam Type: CA echo doppler color flow Study Info Indications R01.1 - Cardiac murmur, unspecified Complete two-dimensional, color flow and Doppler transthoracic echocardiogram is performed. Summary 1. Complete two-dimensional, color flow and Doppler transthoracic echocardiogram is performed. 2. Left ventricular chamber dimension is normal. 3. Left ventricular systolic function is normal, estimated at 65-70%. 4. There is mildly increased left ventricular wall thickness. 5. The left ventricular diastolic function is grade I diastolic dysfunction. 6. Left atrial chamber dimension is mildly enlarged. 7. Patent foramen ovale visualized by color flow imaging. 8. There is mild aortic valve stenosis with a peak velocity of 198 cm/s, mean gradient of 8 mmHg, and aortic valve area of 2.2 cm2. 9. There is mild aortic valve regurgitation. 10. There is mild aortic valve calcification. 11. There is mild mitral valve regurgitation. 12. There is mild tricuspid valve regurgitation. Left Ventricle Left ventricular chamber dimension is normal. Left ventricular systolic function is normal, estimated at 65-70%. There is mildly increased left ventricular wall thickness. The left ventricular diastolic function is grade I diastolic dysfunction. Right Ventricle Right ventricular chamber dimension is normal. Right ventricular systolic function is normal. Left Atria Left atrial chamber dimension is mildly enlarged. Right Atria Right atrial chamber dimension is normal. Atrial Septum Patent foramen ovale visualized by color flow imaging. Aortic Valve The aortic valve is trileaflet. There is mild aortic valve stenosis with a peak velocity of 198 cm/s, mean gradient of 8 mmHg, and aortic valve area of 2.2 cm2. There is mild aortic valve regurgitation. There is mild aortic valve calcification. Pulmonic Valve The pulmonic valve is normal. There is no pulmonic valve stenosis. There is trace pulmonic regurgitation. Mitral Valve The mitral valve has calcified annulus. There is no mitral valve stenosis. There is mild mitral valve regurgitation. Tricuspid Valve The tricuspid valve leaflets are normal. There is no significant tricuspid valve stenosis. There is mild tricuspid valve regurgitation. No pulmonary hypertension, estimated pulmonary arterial systolic pressure is 34 mmHg. Pericardium/Pleural The pericardium appears normal. There is no pericardial effusion. Inferior Vena Cava Dilated inferior vena cava with >50% collapse upon inspiration consistent with elevated right atrial pressure, 10 mmHg. Aorta The aortic root size at the sinus of Valsalva is normal. There is mild aortic atherosclerosis. Left Ventricular Outflow Tract Name Value Normal LVOT 2D
== END 2021-09-22 13:40 | disposition home or self-care (01) ==
PROVIDERS: PCP Nurse Practitioner Family; Visit Provider Nurse Practitioner Family
DX: R01.1 Cardiac murmur, unspecified (principal); I35.1 Nonrheumatic aortic (valve) insufficiency; I34.0 Nonrheumatic mitral (valve) insufficiency; I36.1 Nonrheumatic tricuspid (valve) insufficiency
CPT/HCPCS: 93306

== ENCOUNTER 2021-09-30 12:34 | Outpatient (CLI) | payer MEDICARE, SELFPAY ==
[2021-09-30 13:05] LABS: Anion Gap 5 mmol/L (8-16); Blood Urea Nitrogen 8 mg/dL (7-18); Calcium 9.4 mg/dL (8.5-10.1); Carbon Dioxide 29 mmol/L (21-32); Chloride 102 mmol/L (98-108); Estimated Glomerular Filt Rate 60; Glucose 126 mg/dL (70-99); Magnesium 1.4 mg/dL (1.8-2.4); Osmolality Calculated 282 mOsm/kg (285-295); Potassium 3.5 mmol/L (3.5-5.1); Sodium 136 mmol/L (136-145)
== END 2021-09-30 12:35 | disposition home or self-care (01) ==
LOC: CHSLAB 12:36
PROVIDERS: PCP Nurse Practitioner Family; Visit Provider Nurse Practitioner Family
DX: E87.6 Hypokalemia (principal)
CPT/HCPCS: 36415; 80048; 83735

== ENCOUNTER 2021-11-22 10:27 | Outpatient (CLI) | payer MEDICARE, SELFPAY ==
[2021-11-22 16:06] LABS: SARS-CoV-2 RNA PCR Negative (Negative)
== END 2021-11-22 10:28 | disposition home or self-care (01) ==
PROVIDERS: PCP Nurse Practitioner Family; Visit Provider Nurse Practitioner Family
DX: Z20.822 Contact with and (suspected) exposure to COVID-19 (principal)
CPT/HCPCS: C9803; U0003; U0005